=== PATIENT | male | born 1965 | race Caucasian/White ===

== ENCOUNTER 2021-02-11 14:13 | Outpatient (RCR) | payer BC, SELFPAY ==
[2021-02-11] MEDS: COVID-19 VACC, MRNA(PFIZER)/PF 30 MCG/0.3 ML SYRINGE IM (11:30)
[2021-03-04] MEDS: COVID-19 VACC, MRNA(PFIZER)/PF 30 MCG/0.3 ML SYRINGE IM (11:17)
== END 2021-02-11 23:59 ==
LOC: IMMUN 14:13
PROVIDERS: PCP Family Medicine; Visit Provider Family Medicine
DX: Z23 Encounter for immunization (principal)
CPT/HCPCS: 0001A; 0002A; 91300

== ENCOUNTER 2023-10-23 06:44 | Emergency (ER) | payer BC, SELFPAY ==
[2023-10-23 06:46] VITALS: BP 151/95; PULSE 87; RESP 16; TEMP 36.2; O2SAT 98; BMI 22.4
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
== END 2023-10-23 07:58 | disposition home or self-care (01) ==
PROVIDERS: Emergency Provider Student in an Organized Health Care Education/Training Program; PCP Family Medicine; Visit Provider Student in an Organized Health Care Education/Training Program
DX: S42.022A Displaced fracture of shaft of left clavicle, initial encounter for closed fracture (principal); W17.89XA Other fall from one level to another, initial encounter
CPT/HCPCS: 73000; 99282